=== PATIENT | female | born 2000 | race African-American/Black ===

== ENCOUNTER 2025-07-09 15:44 | Emergency (ER) | payer OTHER ==
[~2025-07-09] VITALS: Ht 172.7 cm; Wt 66.1 kg
--- NOTE | 2025-07-09 17:57 | Physician Documentation ---
History of Present Illness ~ Chief Complaint: See Chief Complaint Stated Complaint: SOB Time Seen by MD: 17:42 HPI This is a 24-year-old female who presents for two weeks of chest tightness. She reports that she saw her primary care provider at the [place] [facility] and had lab work done, but does not yet know the results. She also notes that she has an ultrasound of the thyroid pending due to concerns for thyroid enlargement or nodules. This has not yet been scheduled. She denies recent symptoms of illness to include chills or fever, N/V,or shortness of breath. Medication Reconciliation Allergies: Coded Allergies: No Known Allergies (Unverified , 07/09/25) Scheduled Hydroxyzine Hcl (Atarax), 1 TAB PO Q12H Review of Systems ROS As stated above in the HPI, otherwise all systems are reviewed and negative. Physical Exam Vital Signs: Temperature: 98.5, Source: Oral, Heart Rate: 77, Respiratory Rate: 16, BP: 113/65, Pulse Oximetry: 100, Weight: 66.100 Oxygen Flow Rate: 0 Physical Exam General: Alert, no apparent distress. Neck: Full range of motion. Respiratory: Lungs clear, no respiratory distress. Chest: No accessory muscle use. Cardiovascular: Regular rate and rhythm, no murmurs. Gastrointestinal: Soft, nontender, nondistended. Bowels sounds present. Extremities: Normal range of motion, no deformity. Neurologic: Oriented x4. Psychiatric: Normal mood and affect. Skin: Normal color, warm and dry. No edema, no ecchymosis. Progress Results/Orders Results/Orders Orders - MAGDIEL HAM ACCOUNT RESOLUTION SPECIALIST Chest,Single View (07/09/25 17:57) Completed Orders - MAGDIEL HAM ACCOUNT RESOLUTION SPECIALIST Lorazepam Tablet (Ativan Tablet) (07/09/25 17:50) Chest,Single View (07/09/25 17:57) Medications Received in ER Medications (Trade) Dose Ordered Sig/Philip Route PRN Reason Start Time Stop Time Status Last Admin Dose Admin (Ativan tablet) 1 mg ONCE ONCE PO 07/09/25 17:50 07/09/25 17:51 DC 07/09/25 18:28 1 MG Vital Signs 07/09/25 07/09/25 15:46 18:28 Temp 98.5 Pulse 77 Resp 16 18 B/P (MAP) 113/65 Pulse Ox 100 O2 Flow Rate 0 EKG/XRAY/CT/US/VASC/MRI Chest X-Ray : Additional Comments [facility] [address] , [place], [facility] [id number] DIAGNOSTIC RADIOLOGY Patient: LARISSA MASON Medical Record: [id number] [facility] 2000, Age: 24 Sex: Female Location: ER Patient Status: [facility] ER Service Date/Time: 07/09/251756 Ordering Physician: MAGDIEL HAM NP Exam: CHEST,SINGLE VIEW EXAM: DI CHEST,SINGLE VIEW HISTORY: chest tightness TECHNIQUE: 1 view of the chest COMPARISON: None FINDINGS/IMPRESSION: LUNGS: No pleural effusion, consolidation, or pneumothorax. MEDIASTINUM: Unremarkable. BONES: No acute osseous abnormality. OTHER: None. Electronically Signed by:TONNY GRAY MD Date & Time: 07/09/251844 Dictated by: TONNY GRAY MD Dictation date and time: 07/09/251754 Primary Care Provider: NO PRIMARY CARE PROVIDER cc: MAGDIEL HAM NP ~ Medical Decision Making Additional information obtaine: N/A Findings no previous visits to this hospital. Differential Dx:Considerations: Include: Alcohol abuse, Anxiety, Bipolar disorder, Conversion disorder, Depression, Encephaloathy, Homicidal, Panic disorder, Personality disorder, Schizophrenia, Substance abuse, Suicidal Departure Time of Disposition: 19:25 Disposition: 01 HOME / SELF CARE / HOMELESS Impression: Primary Impression: Chest pain Additional Impression: Anxiety Condition: Stable Discharge Instructions: Managing Anxiety, Adult, Nonspecific Chest Pain, Adult Additional Instructions: Normal chest xray. Try the prescribed hydroxyzine if your anxiety/chest tightness returns. Please followup with your primary care provider. Please return if worse while awaiting this followup appointment. Referrals: NO PRIMARY CARE PROVIDER (PCP) Prescriptions Hydroxyzine Hcl (Atarax) 25 Mg Tablet 1 TAB PO Q12H for anxiety for 30 Days, #60 TAB 0 Refills Prov: MAGDIEL HAM NP 07/09/25 Education Educated: Patient, Family Educated regarding: diagnosis, treatment, prognosis, need for follow up Signature Scribe Signature: x Attestation: The note accurately reflects work and decisions made by me.Magdiel Calvin NP 07/09/25 17:57 MAGDIEL HAM NP Jul 09, 2025 17:57
--- NOTE | 2025-07-09 18:48 | RADIOLOGY REPORT ---
EXAM: DI CHEST,SINGLE VIEW HISTORY: chest tightness TECHNIQUE: 1 view of the chest COMPARISON: None FINDINGS/IMPRESSION: LUNGS: No pleural effusion, consolidation, or pneumothorax. MEDIASTINUM: Unremarkable. BONES: No acute osseous abnormality. OTHER: None.
[2025-07-09] MEDS ORDERED: HYDR-3686 PO (19:25)
[2025-07-09 19:57] VITALS: BP 114/66; PULSE 77; RESP 18; TEMP 98.6; O2SAT 99
== END 2025-07-09 19:58 | disposition home or self-care (01) ==
LOC: ER 15:45
DX: R07.89 Other chest pain (principal); F41.9 Anxiety disorder, unspecified
CPT/HCPCS: 71045; 99283